=== PATIENT | male | born 1940 | race Caucasian/White ===

== ENCOUNTER → 2018-06-10 05:49 | Day surgery (SDC) | payer MEDICARE ==
[~2018-06-10 05:49] MED LIST: Acetaminophen TAB* 325 MG PO PRN; Albuterol/Ipratropium NEB.SOL* Albuterol 2.5 MG/Ipratropium 0.5 MG 3 ML INH ONE; Albuterol/Ipratropium NEB.SOL* Albuterol 2.5 MG/Ipratropium 0.5 MG 3 ML ONE; Atracurium* 10 MG/ML 10 ML VIAL ONE; Buffered Lidocaine 0.9% SYRIN* 5 ML/SYR SYRINGE INTRADERM ONE; Dexamethasone IV* 4 MG/ML 1 ML (4 MG) ONE; DiMENhydriNATE IV* 50 MG/ML VIAL IV PUSH PRN; Famotidine IV* 10 MG/ML 2 ML (20 mg) IV ONE; Famotidine IV* 10 MG/ML 2 ML (20 mg) ONE; Ketorolac INJ* 30 MG/ML 1 ML VIAL ONE; Lidocaine 1% INJ* 10 MG/ML 30 ML SDV ONE; Lidocaine 2% PF * 5 ML VIAL ONE; Midazolam* 1 MG/ML 2 ML VIAL (2 MG) ONE; Naloxone* 0.4 MG/ML 1 ML VIAL IV PRN; Ondansetron INJ* 2 MG/ML VIAL ONE; Phenylephrine IV* 40 MCG/ML 10 ML SYRINGE ONE; Propofol* 10 MG/ML 20 ML BTL IV PUSH ONE; Ropivacaine (OR use only) 2 MG/ML 10 ML ONE; ceFAZolin 2 GM PREMIX (*) 2 GM/50 ML BAG IVPB ONE; fentaNYL* 50 MCG/ML 2 ML VIAL (100 MCG VIAL) ONE
[2018-06-10 13:26] VITALS: BP 142/68
--- NOTE | 2018-06-10 21:36 | OP ---
DATE OF OPERATION: 06/10/18 - [facility] DATE OF : 38 SURGEON: Carlos Le MD CASH [employer]ISTER OPERATOR: JESSICA Zamarripa. An anesthesiologist assistant certified was needed for the entirety of the procedure to aid in positioning of the arm and retraction. ANESTHESIOLOGIST: Dr. Morrell. ANESTHESIA: General. 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 OPERATIVE PROCEDURE: 1. Right forearm flexor digitorum profundus to flexor digitorum superficialis tendon transfer. 2. Right flexor carpi radialis fractional tendon, fractional lengthening. 3. Right flexor carpi ulnaris tendon fractional lengthening. 4. Right flexor pollicis longus fractional lengthening. 5. Release of intrinsic tendons right hand including index through small fingers. 6. Release of adductor pollicis longus and thenar muscles for release of first webspace and thumb contracture. 7. Double opposing Z-plasty in the right first web space for skin lengthening of the web space. 8. Excision of right palmaris longus tendon. INDICATIONS: Donaldo has a prior neurological injury. 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 He resides at a facility in [place], it has gotten to a point where they are unable to clean the hand. He is developing wounds in the palm. The hand will not open with any amount of effort. He was brought to my office at the request of the facility, wondering if I could do something to allow them to better care for Mr. Garcia. I discussed the procedure with the aides who had come with him to the appointment, as well as briefly with his son Andres over the phone and obtained consent from his son as well. They understood the risk of medical complications as well as the risk of recurrent contractures. They understand that this will not allow for function of the hand but simply open up the hand to allow for better hygiene and care. ESTIMATED BLOOD LOSS: 5 mL. COMPLICATIONS: None. FINDINGS: See above and below. DESCRIPTION OF PROCEDURE: Donaldo was seen in the preoperative area. The correct site, side and procedure were identified. Consent was obtained from the son. We came back to the operating room where anesthesia was induced. The arm was then prepped and draped with a Betadine prep. A time-out was performed. I began by making a longitudinal incision of his volar aspect of the forearm of about 8 to 10 cm. Dissection was carried down, the FCR tendon was identified. I came 2 cm proximal to the musculotendinous junction and incised the tendon obliquely in 2 locations, one about 1.5 cm proximal to the other. This provided very nice lengthening of the FCR tendon. I then excised the palmaris longus tendon in its entirety. I then came and did the same with the FCU tendon. After I had performed fractional lengthenings of the FCR and the FCU tendon, I turned my attention to the FDS and the FDP tendons. The FDS tendons were from the FDP tendons which resided more deeply. I sutured the FDS tendons into 1 tendon distally. I then released the tendons distal to where I had sewed them together. I then reflected those out of the way and sewed my FDP tendons into one mass proximally just at the musculotendinous junction. Once these were sewed together, I released them as well. I then performed a fractional lengthening of the FPL tendon in similar fashion as previously described. After this was performed, there was obvious intrinsic tightness as I was able to extend the IP joints but not to the MP joints, so I came to the dorsum of the hand. I made a transverse incision over the dorsum of the metacarpophalangeal joints. Dissection was carried down and full thickness skin and subcutaneous flaps were raised on the radial and ulnar aspect of the dorsum of each finger to expose the extensor hunt. I began on the index finger and released first the radial intrinsics, both the transverse and oblique fibers until the tenotomy was complete. I then released the ulnar intrinsic tendon. I then in similar fashion released all the intrinsic tendons on the middle, ring and small fingers. This allowed me to bring the MP joints out to neutral extension, they did not hyperextend but they came out to neutral extension. Certainly, there was some tightness to the joints given the longstanding contractures, but ultimately the fingers came out to a very nice position after the intrinsic tendons were released. The distal part of each tendon was excised just to try to preclude any tendon regrowth and spasticity causing recurrence of the contractures. Once I had released the intrinsic muscles and I had the fingers in a nice position, I placed the wrist in neutral flexion, the MP joints and IP joints at 45 degrees of flexion, and then sutured in [id number] fashion, the FDS tendon stump to the FDP tendon stump. Multiple 3-0 and 2-0 Ethibond sutures were used to secure the tendon transfer. After all of the tendon lengthenings and the tendon transfer had been performed and the intrinsic releases had been performed, the index through the small fingers were all seated in a very nice position, it was now quite obvious that the first web space was extremely contracted. It was difficult to even open up the web space enough and get the thumb away from the index finger to be able to perform hygiene and to even make a skin incision. I went ahead and did the best I could and marked out my double opposing Z-plasty flaps. I then made the transverse limb of my incision in line with the first web space. I raised the soft tissue off the adductor pollicis tendon. The ulnar digital neurovascular bundle was identified and protected. Once everything was retracted out of the way, I took the tenotomy scissors and I released the adductor pollicis longus tendon in its entirety. I released some of the thenar muscles from their origin as well to aid in releasing the contracture. At this point, certainly I did not have a normal first web space,but I had a very nice first web space that would easily allow for maintenance of hygiene and easier care for the patient. It will allow him to put on a glove. At this point, I went ahead and raised my flaps and transposed the Z-plasty flaps to gain skin length. The flaps were sewn down with 4-0 nylon suture. All the incisions at this point were irrigated and closed with 4-0 nylon suture. After all the wounds were closed, everything was looking good. I thought I could feel 1 band of intrinsic tendon on the ulnar aspect of the small finger, and so I made a 1 cm longitudinal incision right over that tendon. I did in fact locate a few bands of tendon, I released these taking care to preserve the ulnar digital nerve and artery. After I did this, the finger was much looser. This incision was closed as well. I infiltrated all of the operative sites with 0.2% ropivacaine. The wounds were dressed with Xeroform, 4x4's, ABD, sterile Webril and plaster splint was applied holding the MP joints extended as well as the IP joints, and holding the first web space open. The splint was very well padded to prevent any pressure sores. The fingers pinked up immediately as tourniquet was let down. The patient was then woken up and taken to the recovery room in stable condition. [id number]/CPS #: [id number] MTDD
== END | disposition home or self-care (01) ==
LOC: OR 05:49
PROVIDERS: ATTEND Orthopaedic Surgery Hand Surgery
DX: M24.541 Contracture, right hand (principal); M24.531 Contracture, right wrist; E11.8 Type 2 diabetes mellitus with unspecified complications; Z79.4 Long term (current) use of insulin; I69.351 Hemiplegia and hemiparesis following cerebral infarction affecting right dominant side; I69.391 Dysphagia following cerebral infarction; R13.10 Dysphagia, unspecified; Z87.891 Personal history of nicotine dependence; N18.9 Chronic kidney disease, unspecified; I12.9 Hypertensive chronic kidney disease with stage 1 through stage 4 chronic kidney disease, or unspecified chronic kidney disease
CPT/HCPCS: A9270-GY; J0690; J1100; J1885; J2250; J2405; J2704; J2795; J3010